=== PATIENT | male | born 1995 | race Caucasian/White ===

== ENCOUNTER 2019-07-17 17:54 | Emergency (ER) | payer SELFPAY ==
[2019-07-17 18:24] VITALS: BMI 26.6
[2019-07-17] MEDS ORDERED: ONDANSETRON 4 MG/2 ML VIAL IVPUSH ONE (18:36)
[2019-07-17] MEDS ORDERED: SODIUM CHLORIDE 1,000 ML IV STA (18:36)
[2019-07-17] MEDS ORDERED: KETOROLAC TROMETHAMINE 30 MG/1 ML VIAL IVPUSH ONE (18:36)
--- NOTE | 2019-07-17 18:38 | PDOC ---
Rapid Medical Evaluation Chief Complaint: Pain Medical Evaluation: Allergies Allergy/AdvReac Type Severity Reaction Status Date / Time No Known Allergies Allergy Verified 07/17/19 18:10 Vital Signs Temp Pulse Resp BP Pulse Ox 98.3 F 67 18 142/77 100 07/17/19 18:08 07/17/19 18:08 07/17/19 18:08 07/17/19 18:08 07/17/19 18:08 07/17/19 18:37 Pt c/o: abd cramping generally with n/v since monday, no fever, no travel, no gi hx, Pt on brief exam: vss, mild lower abd tenderness and epigastric tenderness Pt ordered for: labs, meds, ivf, ua, Pt to proceed to the ED Discharge Disposition - Diagnosis Abdominal pain - Referrals - Patient Instructions - Post Discharge Activity
[2019-07-17] MEDS ORDERED: KETOROLAC TROMETHAMINE 30 MG/1 ML VIAL ONE (19:43)
[2019-07-17] MEDS ORDERED: ONDANSETRON 4 MG/2 ML VIAL ONE (19:44)
[2019-07-17 20:42] LABS: BASO % 0.3 % (0-2.0); EOS % 0.1 % (0-4.5); HEMATOCRIT 51.8 % (35.4-49); HEMOGLOBIN 17.1 GM/dL (11.7-16.9); LYMPH % 7.6 % (8-40); MCH 29.3 pg (25.7-33.7); MCHC 33.1 g/dl (32.0-35.9); MEAN CELL VOLUME 88.8 fl (80-96); MONO % 7.8 % (3.8-10.2); NEUT % 84.2 % (42.8-82.8); PLATELET COUNT 247 K/MM3 (134-434); RBC 5.84 M/mm3 (4.00-5.60); RDW 12.1 % (11.9-15.9); WHITE BLOOD COUNT 14.1 K/mm3 (4.0-10.0)
[2019-07-17 21:09] LABS: ALBUMIN 4.6 g/dl (3.4-5.0); BILIRUBIN,TOTAL 0.8 mg/dL (0.2-1); BLOOD UREA NITROGEN 12.9 mg/dL (7-18); CALCIUM 9.8 mg/dL (8.5-10.1); MAGNESIUM 2.1 mg/dL (1.8-2.4); POTASSIUM 4.6 mmol/L (3.5-5.1); TOT PROT 8.4 g/dl (6.4-8.2)
--- NOTE | 2019-07-17 21:28 | PDOC ---
History of Present Illness - General Chief Complaint: Pain Stated Complaint: ABD/PAIN/VOMITTING Time Seen by Provider: 07/17/19 19:41 - History of Present Illness Initial Comments: 07/17/19 21:13 CHIEF COMPLAINT: abdominal pain, vomiting HISTORY OF PRESENT ILLNESS: 24 yo M with no PMH presents to ED with abdominal pain and persistent vomiting since yesterday. Patient reports onset of mild abdominal pain 5 days ago, but the pain got excruciating yesterday and he has vomited countless times since then. He denies any fever, chills, or diarrhea and reports his last BM was this morning and was normal. He does endorse use of daily marijuana and occasional alcohol use. No recent travel or sick contacts. PAST MEDICAL HISTORY: Denies past medical history FAMILY HISTORY: Denies SOCIAL HISTORY: Daily marijuana use. Denies tobacco use. SURGICAL HISTORY: Denies ALLERGIES: No known drug allergies REVIEW OF SYSTEMS General/Constitutional: Denies fever or chills. Denies weakness, weight change. HEENT: Denies change in vision. Denies ear pain or discharge. Denies sore throat. Cardiovascular: Denies chest pain or shortness of breath. Respiratory: Denies cough, wheezing, or hemoptysis. Gastrointestinal: Upper abdominal pain, vomiting. Denies diarrhea or constipation. Denies rectal bleeding. Genitourinary: Denies dysuria, frequency, or change in urination. Musculoskeletal: Denies joint or muscle swelling or pain. Denies neck or back pain. Skin and breasts: Denies rash or easy bruising. Neurologic: Denies headache, vertigo, loss of consciousness, or loss of sensation. Psychiatric: Denies depression or anxiety. PHYSICAL EXAM General Appearance: Well-appearing, appropriately dressed. No apparent distress , no intoxication. HEENT: EOMI, PERRLA, normal ENT inspection, normal voice, TMs normal, pharynx normal. No conjunctival pallor. No photophobia, scleral icterus. Neck: Supple. Trachea midline. No tenderness, rigidity, carotid bruit, stridor , lymphadenopathy, or thyromegaly. Respiratory/Chest: Lungs CTAB. No shortness of breath, chest tenderness, respiratory distress, accessory muscle use. No crackles, rales, rhonchi, stridor , wheezing, dullness Cardiovascular: RRR. S1, S2. No JVD, murmur, bradycardia, tachycardia. Vascular Pulses: Dorsalis-Pedis (R): 2+, Dorsalis-Pedis (L): 2+ Gastrointestinal/Abdominal: Marked tenderness to RUQ and epigastrum. Normal bowel sounds. No organomegaly, pulsatile mass, guarding, hernia, hepatomegaly, splenomegaly. Lymphatic: No adenopathy, tenderness. Musculoskeletal/Extremities: Normal inspection. FROM of all extremities, normal capillary refill. Pelvis Stable. No CVA tenderness. No tenderness to extremities, pedal edema, swelling, erythema or deformity. Integumentary: Appropriate color, dry, warm. No cyanosis, erythema, jaundice or rash Neurologic: bisque tile burner II-XII intact. Fully oriented, alert. Appropriate mood/affect. Motor strength 5/5. No appreciable EOM palsy, facial droop or sensory deficit. 07/17/19 21:34 07/17/19 23:12 Past History - Past Medical History Allergies/Adverse Reactions: Allergies Allergy/AdvReac Type Severity Reaction Status Date / Time No Known Allergies Allergy Verified 07/17/19 18:10 Home Medications: Ambulatory Orders Dicyclomine HCl [Bentyl -] 20 mg PO Q8H #21 tablet 07/17/19 Ondansetron HCl [Zofran] 4 mg PO TID PRN #14 tablet 07/17/19 COPD: No - Psycho Social/Smoking Cessation Hx Smoking History: Never smoked Information on smoking cessation initiated: No Hx Alcohol Use: No Drug/Substance Use Hx: No *Physical Exam - Vital Signs Last Vital Signs Temp Pulse Resp BP Pulse Ox 97.4 F L 77 20 107/80 100 07/17/19 19:30 07/17/19 19:30 07/17/19 19:30 07/17/19 19:30 07/17/19 19:30 ED Treatment Course - LABORATORY CBC & Chemistry Diagram: 07/17/19 20:08 07/17/19 20:08 - ADDITIONAL ORDERS Additional order review: Laboratory Results 07/17/19 20:08 Sodium 135 L Potassium 4.6 Chloride 98 Carbon Dioxide 30 Anion Gap 7 L BUN 12.9 Creatinine 1.0 Est GFR (CKD-EPI)AfAm 120.70 Est GFR (CKD-EPI)NonAf 104.14 Random Glucose 119 H Calcium 9.8 Magnesium 2.1 Total Bilirubin 0.8 AST 27 ALT 36 Alkaline Phosphatase 70 Total Protein 8.4 H Albumin 4.6 Lipase 114 07/17/19 20:08 RBC 5.84 H MCV 88.8 MCHC 33.1 RDW 12.1 MPV 9.0 Neutrophils % 84.2 H Lymphocytes % 7.6 L Monocytes % 7.8 Eosinophils % 0.1 Basophils % 0.3 - RADIOLOGY Radiology Studies Ordered: Category Date Time Status ABDOMEN & PELVIS CT W/O CONTR [CT] Stat CT Scan 07/17/19 20:59 Ordered - Medications Given in the ED: ED Medications Discontinued Medications Generic Name Dose Route Start Last Admin Trade Name Freq PRN Reason Stop Dose Admin Sodium Chloride 1,000 mls @ 1,000 mls/hr 07/17/19 18:36 07/17/19 19:50 Normal Saline - IV 07/17/19 19:35 1,000 mls/hr ASDIR STA Administration Ketorolac Tromethamine 30 mg 07/17/19 18:36 07/17/19 19:50 Toradol Injection - IVPUSH 07/17/19 18:37 30 mg ONCE ONE Administration Ondansetron HCl 4 mg 07/17/19 18:36 07/17/19 19:50 Zofran Injection IVPUSH 07/17/19 18:37 4 mg ONCE ONE Administration Medical Decision Making - Medical Decision Making 07/17/19 21:36 24 yo M with no PMH presents to ED with abdominal pain and persistent vomiting since yesterday. -labs -urine 07/17/19 21:36 Laboratory Tests 07/17/19 20:08 WBC 14.1 H RBC 5.84 H Hgb 17.1 H Hct 51.8 H Absolute Neuts (auto) 11.9 H Neutrophils % 84.2 H Lymphocytes % 7.6 L 07/17/19 22:49 Possible mild diverticulosis on CT, otherwise negative for acute pathology. Likely cannibinoid induced vomiting. Pooja Jacob, sent to pharm. Advised patient to take medication as prescribed and follow up with PCP if symptoms persist after discontinuation of marijuana. Advised patient of signs and symptoms for return to ED. Patient verbalized understanding and agrees to plan. Discharge - Discharge Information Problems reviewed: Yes Clinical Impression/Diagnosis: Cannabinoid hyperemesis syndrome Condition: Stable Disposition: HOME - Admission No - Additional Discharge Information Prescriptions: Dicyclomine HCl [Bentyl -] 20 mg PO Q8H #21 tablet Ondansetron HCl [Zofran] 4 mg PO TID PRN #14 tablet PRN Reason: Nausea And/Or Vomiting - Follow up/Referral - Patient Discharge Instructions Patient Printed Discharge Instructions: DI for Vomiting -- Adult Additional Instructions: Please take medications as prescribed. As discussed, you will need to discontinue use of marijuana for your symptoms to improve. If you develop persistent vomiting, fever, chills, diarrhea, or any new or worsening symptoms, please return to the ER. - Post Discharge Activity
[2019-07-17] MEDS ORDERED: DICYCLOMINE HCL 20 MG TABLET PO ONE (22:49)
[2019-07-17] MEDS ORDERED: DICYCLOMINE HCL 10 MG CAPSULE ONE (22:56)
[2019-07-17 22:58] LABS: EPI CELLS 1.6 /HPF (0-5/HPF); HYALINE CASTS 4 /lpf (0-8); PH,URINE >= 9.0 (5.0-8.0); URINE APPEARANCE CLOUDY; URINE BACTERIA 1.4 /hpf (NEGATIVE); URINE BILIRUBIN NEGATIVE (NEGATIVE); URINE COLOR YELLOW; URINE GLUCOSE (UA) NEGATIVE (NEGATIVE); URINE KETONE TRACE (NEGATIVE); URINE LEUK ESTERASE NEGATIVE (NEGATIVE); URINE NITRITE NEGATIVE (NEGATIVE); URINE PROTEIN 1+ (NEGATIVE); URINE RBC 2 /hpf (0-4); URINE WBC 1 /hpf (0-5)
[2019-07-17] MEDS ORDERED: ACETAMINOPHEN 500 MG TABLET (FP) PO ONE (23:36)
[2019-07-17] MEDS ORDERED: ACETAMINOPHEN 325 MG TABLET (FP) PO ONE (23:36)
[2019-07-17] MEDS ORDERED: ONDANSETRON *ODT* 4 MG TABLET SL ONE (23:36)
[2019-07-17] MEDS ORDERED: METOCLOPRAMIDE HCL INJECTION 10 MG/2 ML VIAL IVPUSH ONE (23:59)
[2019-07-18] MEDS ORDERED: METOCLOPRAMIDE HCL INJECTION 10 MG/2 ML VIAL ONE (00:02)
[2019-07-18] MEDS ORDERED: ONDANSETRON *ODT* 4 MG TABLET ONE (00:30)
[2019-07-18] MEDS ORDERED: ACETAMINOPHEN 325 MG TABLET (FP) ONE (00:40)
[2019-07-18 01:24] VITALS: BP 124/57; PULSE 58; TEMP 98.2
[2019-07-18 01:28] LABS: COCAINE, UR NEGATIVE ng/ml (CUTOFF=300); METHADONE, UR NEGATIVE ng/ml (CUTOFF=300); OPIATES, URI NEGATIVE ng/ml (CUTOFF=300); PHENCYCLIDINE,URINE NEGATIVE ng/ml (CUTOFF=25); URINE AMPHETAMINES NEGATIVE ng/ml (CUTOFF=500); URINE BARBITURATES NEGATIVE ng/ml (CUTOFF=200); URINE BENZODIAZEPINES NEGATIVE ng/ml (CUTOFF=200)
[2019-07-18] MEDS ORDERED: ACETAMINOPHEN 325 MG TABLET (FP) PO ONE (03:13)
== END 2019-07-18 00:45 | disposition home or self-care (01) ==
LOC: JER 17:54
PROC: 3E033GC Introduction of Other Therapeutic Substance into Peripheral Vein, Percutaneous Approach (ICD-10-PCS; principal; 2019-07-17)
PROC: 3E033GC Introduction of Other Therapeutic Substance into Peripheral Vein, Percutaneous Approach (ICD-10-PCS; 2019-07-17)
PROC: 3E0333Z Introduction of Anti-inflammatory into Peripheral Vein, Percutaneous Approach (ICD-10-PCS; 2019-07-17)
DX: F12.988 Cannabis use, unspecified with other cannabis-induced disorder (principal); R11.10 Vomiting, unspecified
CPT/HCPCS: 36415; 74176-TC; 80053; 80307; 81003; 83690; 83735; 85025; 99284-25; J7030; Q0162

== ENCOUNTER 2022-03-25 04:09 | Emergency (ER) | payer SELFPAY ==
[2022-03-25 04:17] VITALS: BP 136/83; PULSE 82; TEMP 97.6; BMI 28.4
== END 2022-03-25 06:03 | disposition home or self-care (01) ==
LOC: JER 04:09
DX: S05.02XA Injury of conjunctiva and corneal abrasion without foreign body, left eye, initial encounter (principal)
CPT/HCPCS: 99283-25